=== PATIENT | male | born 1950 | race Caucasian/White ===

== ENCOUNTER 2016-11-01 08:37 | Emergency (ER) | payer OTHER ==
[2016-11-01] MEDS ORDERED: oxyCODONE/Acetamin 5/325 MG* TAB PO ONE (10:51)
[2016-11-01] MEDS ORDERED: Ketorolac INJ* 30 MG/ML 1 ML VIAL IV ONE (10:51)
[2016-11-01 11:28] LABS: Hematocrit 42 % (42-52); Hemoglobin 14.1 g/dl (14.0-18.0); Mean Corpuscular HGB Conc 34 g/dl (31-36); Mean Corpuscular Hemoglobin 32 pg (27-31); Mean Corpuscular Volume 94 fL (80-94); Mean Platelet Volume 9 um3 (7.4-10.4); Red Blood Count 4.46 10^6/ul (4.0-5.4); Red Cell Distribution Width 13 % (10.5-15); White Blood Count 6.2 10^3/ul (3.5-10.8)
[2016-11-01 11:44] LABS: BUN/Creatinine Ratio 17.9 (8-20); C Reactive Protein 1.63 mg/L (< 5.00); Calcium 9.3 mg/dL (8.6-10.3); EGFR African American 102.3 (>60); EGFR Non-African American 79.6 (>60); Globulin 2.8 g/dL (2-4); Potassium 4.3 mmol/L (3.5-5.0); Total Bilirubin 0.5 mg/dL (0.2-1.0); Total Protein 6.8 g/dL (6.4-8.9)
--- NOTE | 2016-11-01 11:51 | RAD ---
INDICATION: Chronic neck pain. Arthritis. No history of trauma. COMPARISON: Cervical spine March 26, 2014 TECHNIQUE: Noncontrast axial source images was performed from the skull base to the thoracic inlet. Coronal and and sagittal reformatted images were generated. FINDINGS: Vertebrae: There is no fracture or acute focal bony lesion. There are arthritic changes as evident on prior plain radiographs with disc space narrowing, endplate sclerosis, and uncinate process spurring from C4 through C7. There is an old avulsion injury from the spinous process of C7, unchanged. Alignment: The craniocervical junction appears normal. The cervical vertebrae are normally aligned. Central Canal: There are no significant CT abnormalities of the central canal or there is bilateral foraminal encroachment related to the multilevel uncinate process spurring. MR imaging is a more sensitive method to evaluate the canal and foramina. Intervertebral disc spaces: Multilevel degenerative narrowing is noted above. Brain: The visualized brain appears unremarkable. Soft tissues: The visualized soft tissue elements of the neck are unremarkable. The prevertebral soft tissues appear normal. The lung apices are clear. IMPRESSION: MODERATE OSTEOARTHRITIS/DEGENERATIVE DISC DISEASE C4-C7. CONSIDER NONEMERGENT MR IMAGING TO EVALUATE THE PATIENT'S CHRONIC NECK PAIN IF THERE ARE RADICULAR SYMPTOMS.
[2016-11-01] MEDS ORDERED: Cyclobenzaprine TAB* 10 MG PO ONE (11:57)
--- NOTE | 2016-11-01 12:35 | RAD ---
INDICATION: Chronic low back pain COMPARISON: CT abdomen pelvis December 20, 2015 TECHNIQUE: Noncontrast axial source images was performed from the thoracolumbar junction to the sacrum. Coronal and and sagittal reformatted images were generated. FINDINGS: Vertebrae: There is no fracture or acute focal bony lesion. There are underlying osteoarthritic changes. There is moderate disc space narrowing, prominent vertebral endplate sclerosis with endplate irregularities, and marginal osteophyte formation at L3-L4, unchanged. There is moderate facet overgrowth at L3-L4. There is mild bulging of the L3-L4, L4-L5 and L5-S1 discs. Alignment: The lumbar vertebrae are normally aligned. Central Canal: There are no significant CT abnormalities of the central canal or foramina. MR imaging is a more sensitive method to evaluate the canal and foramina. Intervertebral disc spaces: The disc spaces are maintained. Soft tissues: The paravertebral soft tissues are normal. Other: None IMPRESSION: DEGENERATIVE DISC DISEASE PREDOMINANTLY ABOUT L3-L4 SIMILAR IN APPEARANCE TO PRIOR IMAGING. NO ACUTE FINDINGS. CONSIDER NONEMERGENT MR IMAGING INDICATED IF THERE ARE RADICULAR SYMPTOMS
[2016-11-01 15:16] VITALS: BP 116/77
--- NOTE | 2016-11-01 17:15 | ED ---
Janak Shannon Benjamin, scribed for Aime Mccullough MD on 11/01/16 at 1034 . Back Pain - HPI Summary HPI Summary: 66yo male c/o waking up today around 4-5am with low back pain and neck pain. Pt has been having minor back and neck pain for awhile, but pt experienced increased neck pain for 3 days and this morning his back pain has gotten worse. Pt doesnt recall any injuries or any lifestyle changes that might explain his sudden increase in pain. Pt had prior imaging in his back at [facility], where pt was dxed with arthritis. Pt also reports burning sensation in his lateral and anterior aspect of his left thigh however no leg pain. Pt states his neck hurts most at rest, and when he move, his low back starts to hurt. Pt reports some numbness in his left leg as well. Denies any pain radiating down his buttock or posterior aspect of his leg. Pt is allergic to morphine. - History of Current Complaint Chief Complaint: EDBackInjuryPain Stated Complaint: BACK PAIN Time Seen by Provider: 11/01/16 10:25 Hx Obtained From: Patient Onset/Duration: Sudden Onset - worsened, Gradual Onset - for 3 days, Still Present, Worse Since - 4am today Onset/Duration: Started Hours Ago - 4am today, Atraumatic, Still Present, Worse Since - 4am today Timing: Constant Back Pain Location: Is Discrete @ - low back pain; neck pain Severity Initially: Moderate Severity Currently: Moderate Pain Intensity: 7 Pain Scale Used: 0-10 Numeric Character: Throbbing - neck and back, Burning - left thigh Aggravating Symptom(s): Movement Alleviating Symptom(s): Nothing Associated Signs And Symptoms: Positive: Numbness - in LLE - Allergies/Home Medications Allergies/Adverse Reactions: Allergies Allergy/AdvReac Type Severity Reaction Status Date / Time Morphine AdvReac See Comment Verified 12/07/15 12:39 PMH/Surg Hx/FS Hx/Imm Hx Endocrine/Hematology History: Denies: Hx Diabetes Cardiovascular History: Denies: Hx Congestive Heart Failure, Hx Hypertension, Hx Pacemaker/ICD GI History: Reports: Hx Gastroesophageal Reflux Disease History: Reports: Other Problems/Disorders - prostate removal Denies: Hx Renal Disease Sensory History: Reports: Hx Contacts or Glasses Denies: Hx Hearing Aid Opthamlomology History: Reports: Hx Contacts or Glasses Neurological History: Denies: Hx Headaches Psychiatric History: Reports: Hx Depression - per H+P Denies: Hx Panic Disorder - Cancer History Cancer Type, Location and Year: PROSTATE - Surgical History Surgery Procedure, Year, and Place: appendix 2010. [id number]. T & A Infectious Disease History: No Infectious Disease History: Denies: Hx Clostridium Difficile, Hx Hepatitis, Hx Human Immunodeficiency Virus (HIV), Hx of Known/Suspected MRSA, Hx Shingles, Hx Tuberculosis, Hx Known/ Suspected VRE, Hx Known/Suspected VRSA, History Other Infectious Disease, Traveled Outside the [place] in Last 30 Days - Family History Known Family History: Positive: Other - high cholesterol - Social History Occupation: Employed Full-time Lives: With Family Alcohol Use: Daily Alcohol Amount: 2-3 beers Substance Use Type: Reports: Marijuana Substance Use Comment - Amount & Last Used: once every other week Smoking Status (MU): Never Smoked Tobacco Review of Systems Constitutional: Negative Negative: Fever Eyes: Negative ENT: Negative Cardiovascular: Negative Negative: Chest Pain Respiratory: Negative Negative: Shortness Of Breath Gastrointestinal: Negative Negative: Abdominal Pain Genitourinary: Negative Positive: no symptoms reported Positive: Arthralgia - neck pain, Myalgia - low back pain Skin: Negative Neurological: Other - burning sensation in LLE Positive: Numbness - LLE Psychological: Normal All Other Systems Reviewed And Are Negative: Yes Physical Exam Triage Information Reviewed: Yes Vital Signs On Initial Exam: Initial Vitals Temp Pulse Resp BP Pulse Ox 97.4 F 53 18 163/90 98 11/01/16 08:38 11/01/16 08:38 11/01/16 08:38 11/01/16 08:38 11/01/16 08:38 Vital Signs Reviewed: Yes Appearance: Positive: Well-Appearing, Well-Nourished, Pain Distress - Mild Pain distress at rest, moderate pain distress with movement. Skin: Positive: Warm, Skin Color Reflects Adequate Perfusion, Dry Head/Face: Positive: Normal Head/Face Inspection Eyes: Positive: EOMI, IESHA ENT: Positive: Normal ENT inspection Neck: Positive: Tenderness @ - Tenderness at C6-7 and T1. Also at L4-5.. Negative: Nontender Respiratory/Lung Sounds: Positive: Clear to Auscultation, Breath Sounds Present Cardiovascular: Positive: RRR, Pulses are Symmetrical in both Upper and Lower Extremities Abdomen Description: Positive: Nontender, Soft Bowel Sounds: Positive: Present Musculoskeletal: Positive: Strength/ROM Intact - Full strength and sensation intact in all 4 extremities., Pain @ - Tenderness at C6-7 and T1. Also at L4-5. Neurological: Positive: Sensory/Motor Intact - Full strength and sensation intact in all 4 extremities., Alert, Oriented to Person Place, Time Psychiatric: Positive: Affect/Mood Appropriate Diagnostics - Vital Signs Vital Signs Temp Pulse Resp BP Pulse Ox 11/01/16 08:50 98.2 F 63 16 129/75 97 11/01/16 08:38 97.4 F 53 18 163/90 98 - Laboratory Lab Results: Lab Results 11/01/16 11/01/16 11/01/16 Range/Units 11:17 11:17 11:17 WBC 6.2 (3.5-10.8) 10^3/ul RBC 4.46 (4.0-5.4) 10^6/ul Hgb 14.1 (14.0-18.0) g/dl Hct 42 (42-52) % MCV 94 (80-94) fL MCH 32 H (27-31) pg MCHC 34 (31-36) g/dl RDW 13 (10.5-15) % Plt Count 260 (150-450) 10^3/ul MPV 9 (7.4-10.4) um3 Neut % (Auto) 65.7 (38-83) % Lymph % (Auto) 22.3 L (25-47) % [place]lette % (Auto) 8.4 (1-9) % Eos % (Auto) 2.4 (0-6) % Baso % (Auto) 1.2 (0-2) % Absolute Neuts (auto) 4.1 (1.5-7.7) 10^3/ul Absolute Lymphs (auto) 1.4 (1.0-4.8) 10^3/ul Absolute Monos (auto) 0.5 (0-0.8) 10^3/ul Absolute Eos (auto) 0.1 (0-0.6) 10^3/ul Absolute Basos (auto) 0.1 (0-0.2) 10^3/ul Absolute Nucleated RBC 0 10^3/ul Nucleated RBC % 0 INR (Anticoag Therapy) 0.91 (0.89-1.11) APTT 33.1 (26.0-36.3) seconds Sodium 135 (133-145) mmol/L Potassium 4.3 (3.5-5.0) mmol/L Chloride 104 (101-111) mmol/L Carbon Dioxide 26 (22-32) mmol/L Anion Gap 5 (2-11) mmol/L BUN 17 (6-24) mg/dL Creatinine 0.95 (0.67-1.17) mg/dL Est GFR ( Amer) 102.3 (>60) Est GFR (Non-Af Amer) 79.6 (>60) BUN/Creatinine Ratio 17.9 (8-20) Glucose 92 (70-100) mg/dL Calcium 9.3 (8.6-10.3) mg/dL Total Bilirubin 0.50 (0.2-1.0) mg/dL AST 16 (13-39) U/L ALT 18 (7-52) U/L Alkaline Phosphatase 56 (34-104) U/L C-Reactive Protein 1.63 (< 5.00) mg/L Total Protein 6.8 (6.4-8.9) g/dL Albumin 4.0 (3.2-5.2) g/dL Globulin 2.8 (2-4) g/dL Albumin/Globulin Ratio 1.4 (1-3) Result Diagrams: 11/01/16 11:17 09 11:17 Lab Statement: Any lab studies that have been ordered have been reviewed, and results considered in the medical decision making process. - CT CT C-spine WO CT Interpretation: Positive (See Comments) - IMPRESSION: MODERATE OSTEOARTHRITIS/DEGENERATIVE DISC DISEASE C4-C7. CONSIDER NONEMERGENT MR IMAGING TO EVALUATE THE PATIENT'S CHRONIC NECK PAIN IF THERE ARE RADICULAR SYMPTOMS. CT Interpretation Completed By: Radiologist - ED physician has reviewed this radiology report and agrees. CT L-spine WO CT Interpretation: No Acute Changes - IMPRESSION: DEGENERATIVE DISC DISEASE PREDOMINANTLY ABOUT L3-L4 SIMILAR IN APPEARANCE TO PRIOR IMAGING. NO ACUTE FINDINGS. CONSIDER NONEMERGENT MR IMAGING INDICATED IF THERE ARE RADICULAR SYMPTOMS CT Interpretation Completed By: Radiologist Back Pain Course/Dx - Course Course Of Treatment: Reviewed pts medication and allergy lists. High blood pressure noted. PAIN IMPROVED IN ED WITH TORADOL, PERCOCET AND FLEXERIL. RESULTS DISUSSED WITH PATIENT. NO NEUROLOGIC DEFICIT. RX PERCOCET/FLEXERIL, TAKE IBUPROFEN OTC, F/U PMD, RETURN IF WORSE. NO CRITICAL CARE TIME. - Diagnoses Provider Diagnoses: Neck pain, Cervical radiculopathy, Low back pain Discharge - Discharge Plan Condition: Stable Disposition: HOME Prescriptions: Cyclobenzaprine TAB* [Flexeril 10 MG TAB*] 10 mg PO TID PRN #15 tab MDD 3 PRN Reason: Pain oxyCODONE/Acetamin 5/325 MG* [Percocet 5/325 TAB*] 1 tab PO Q4H PRN #30 tab MDD 6 PRN Reason: Pain Patient Education Materials: Acute Low Back Pain (ED), Cervical Radiculopathy ( ED), Neck Pain (ED) Referrals: Rachel Jc MD [Primary Care Provider] - Additional Instructions: FOLLOW UP WITH YOUR DOCTOR. RETURN TO THE EMERGENCY DEPARTMENT FOR ANY WORSENING OF YOUR CONDITION; WEAKNESS , NUMBNESS, DIFFICULTY CONTROLLING BOWEL OR BLADDER OR QUESTIONS OR CONCERNS. The documentation as recorded by the Janak gastelum Benjamin accurately reflects the service I personally performed and the decisions made by me, Aime Mccullough MD.
== END 2016-11-01 15:22 | disposition home or self-care (01) ==
LOC: ED 08:37
DX: M54.5 Low back pain (principal)
CPT/HCPCS: 36415; 72125; 72131; 80053; 85025; 85610; 85730; 86140; 99283; A9270-GY; J1885

== ENCOUNTER 2017-06-23 21:03 | Emergency (ER) | payer OTHER ==
[2017-06-23 21:10] VITALS: BP 136/80
[2017-06-23] MEDS ORDERED: Ketorolac INJ* 30 MG/ML 1 ML VIAL IM ONE (22:00)
--- NOTE | 2017-06-23 22:06 | ED ---
Lower Extremity - HPI Summary HPI Summary: Complains of progressive left hip pain 2 weeks. Patient increased significantly this past , patient went to see PCP, was diagnosed with bursitis and told to take Tylenol and ibuprofen. Tylenol and ibuprofen were controlling pain until today when there was another significant increase in pain. Pain is worse after sitting, worse with full extension of left hip. Patient denies trauma, history of hip pain, radiation of pain, history of gout, fever, N/V, loss of sensation or function distally in left lower extremity, urinary symptoms, abdominal pain, testicular or penile pain, incontinence, urinary retention, inc in chronic back pain. Medical history is arthritis of lower back, HTN, HDL, prostate cancer. - History of Current Complaint Chief Complaint: EDExtremityLower Stated Complaint: LT HIP PAIN Time Seen by Provider: 06/23/17 21:48 Hx Obtained From: Patient Onset of Pain: Days Onset/Duration: Weeks Severity Initially: Mild Severity Currently: Moderate Pain Intensity: 6 Pain Scale Used: 0-10 Numeric Timing: Intermittent Location: Is Discrete @ Character Of Pain: Sharp, Aching Associated Signs And Symptoms: Positive: Negative Aggravating Factor(s): Movement Alleviating Factor(s): Rest Able to Bear Weight: Yes - Risk Factors Gout Risk Factors: Age Over 40, Male, Hypertension, Hyperlipidemia - Allergies/Home Medications Allergies/Adverse Reactions: Allergies Allergy/AdvReac Type Severity Reaction Status Date / Time morphine Allergy See Comment Verified 06/23/17 21:10 Home Medications: Home Medications Aspirin 81 mg CHEW TAB* 81 mg PO DAILY 06/23/17 [History Confirmed 06/23/17] FLUoxetine* 30 mg PO DAILY 06/23/17 [History Confirmed 06/23/17] Lisinopril TAB* 10 mg PO DAILY 06/23/17 [History Confirmed 06/23/17] PMH/Surg Hx/FS Hx/Imm Hx Endocrine/Hematology History: Denies: Hx Diabetes Cardiovascular History: Denies: Hx Congestive Heart Failure, Hx Hypertension, Hx Pacemaker/ICD GI History: Reports: Hx Gastroesophageal Reflux Disease History: Reports: Other Problems/Disorders - prostate removal Denies: Hx Renal Disease Sensory History: Reports: Hx Contacts or Glasses Denies: Hx Hearing Aid Opthamlomology History: Reports: Hx Contacts or Glasses Neurological History: Denies: Hx Headaches Psychiatric History: Reports: Hx Depression - per H+P Denies: Hx Panic Disorder - Cancer History Cancer Type, Location and Year: PROSTATE - Surgical History Surgery Procedure, Year, and Place: appendix 2010. [id number]. T & A Infectious Disease History: No Infectious Disease History: Denies: Hx Clostridium Difficile, Hx Hepatitis, Hx Human Immunodeficiency Virus (HIV), Hx of Known/Suspected MRSA, Hx Shingles, Hx Tuberculosis, Hx Known/ Suspected VRE, Hx Known/Suspected VRSA, History Other Infectious Disease, Traveled Outside the [place] in Last 30 Days - Family History Known Family History: Positive: Other - high cholesterol - Social History Alcohol Use: Daily Alcohol Amount: 2-3 beers Substance Use Type: Reports: Marijuana Substance Use Comment - Amount & Last Used: once every other week Smoking Status (MU): Never Smoked Tobacco Review of Systems Constitutional: Negative Eyes: Negative ENT: Negative Cardiovascular: Negative Respiratory: Negative Gastrointestinal: Negative Genitourinary: Negative Positive: Arthralgia Skin: Negative Neurological: Negative Psychological: Normal All Other Systems Reviewed And Are Negative: Yes Physical Exam - Summary Physical Exam Summary: Full range of motion of left hip with flexion and extension. Pain at extremes of extension. Mild tenderness to palpation of left hip. No erythema, ecchymosis, deformity, swelling, extra warmth noted to left hip joint or gluteus. Genital exam unremarkable. No tenderness to palpation of left knee or left side abdomen or back. Triage Information Reviewed: Yes Vital Signs On Initial Exam: Initial Vitals Temp Pulse Resp BP Pulse Ox 97.6 F 79 18 136/80 96 06/23/17 21:06 06/23/17 21:06 06/23/17 21:06 06/23/17 21:06 06/23/17 21:06 Vital Signs Reviewed: Yes Appearance: Positive: Well-Appearing Skin: Positive: Warm Head/Face: Positive: Normal Head/Face Inspection Eyes: Positive: Normal Neck: Positive: Supple Respiratory/Lung Sounds: Positive: Clear to Auscultation Cardiovascular: Positive: Normal Abdomen Description: Positive: Nontender Male Genital Exam: Positive: Normal Genitalia Musculoskeletal: Positive: Strength/ROM Intact, Pain @ Neurological: Positive: Normal Psychiatric: Positive: Normal AVPU Assessment: Alert - Casey Coma Scale Best Eye Response: 4 - Spontaneous Best Motor Response: 6 - Obeys Commands Best Verbal Response: 5 - Oriented Coma Scale Total: 15 Diagnostics - Vital Signs Vital Signs Temp Pulse Resp BP Pulse Ox 06/23/17 21:06 97.6 F 79 18 136/80 96 - Laboratory Result Diagrams: 06/23/17 22:34 06/23/17 22:34 Lab Statement: Any lab studies that have been ordered have been reviewed, and results considered in the medical decision making process. Re-Evaluation - Re-Evaluation 1n Re-Evaluation Time: 23:28 Change: Improved Comment: Pain improved from 12/04-05/04 with Toradol Lower Extremity Course/Dx - Course Course Of Treatment: Vital signs within normal limits. Imaging negative. Labs and physical exam did not indicate infectious process. Follow-up with orthopedics - Diagnoses Provider Diagnoses: Hip pain, left Discharge - Sign-Out/Discharge Documenting (check all that apply): Discharge/Admit/Transfer - Discharge Plan Condition: Stable Disposition: HOME Patient Education Materials: Hip Pain (ED) Referrals: Rachel Jc MD [Primary Care Provider] - Timur Amaya MD [Medical Doctor] - Additional Instructions: Follow-up with orthopedics Dr. Amaya. Return to the ED for any new or worsening symptoms - Billing Disposition and Condition Condition: STABLE Disposition: HOME
[2017-06-23 22:45] LABS: ABS Basophils 0.1 10^3/ul (0-0.2); ABS Eosinophils 0.2 10^3/ul (0-0.6); ABS Lymphocytes 2.8 10^3/ul (1.0-4.8); ABS Monocytes 0.7 10^3/ul (0-0.8); ABS Neutrophils 6.3 10^3/ul (1.5-7.7); ABS Nucleated RBC 0 10^3/ul; Eosinophil % 2.3 % (0-6); Hematocrit 41 % (42-52); Hemoglobin 14.2 g/dl (14.0-18.0); Lymphocyte % 27.8 % (25-47); Mean Corpuscular HGB Conc 35 g/dl (31-36); Mean Corpuscular Hemoglobin 33 pg (27-31); Mean Corpuscular Volume 95 fL (80-94); Nucleated Red Blood Cells % 0; Platelet Count 296 10^3/ul (150-450); Red Blood Count 4.35 10^6/ul (4.0-5.4); Red Cell Distribution Width 13 % (10.5-15); White Blood Count 10.2 10^3/ul (3.5-10.8)
[2017-06-23 23:04] LABS: EGFR Non-African American 59.1 (>60); Uric Acid 4.9 mg/dL (4.4-7.6)
[2017-06-24] MEDS ORDERED: oxyCODONE/Acetamin 5/325 MG* TAB PO ONE (00:13)
--- NOTE | 2017-06-24 07:31 | RAD ---
INDICATION: Left hip pain. COMPARISON: There are no prior studies available for comparison. TECHNIQUE: An AP view of the pelvis and frontal and lateral views of the left hip were obtained. FINDINGS: The bones are normal alignment. No significant focal osseous abnormality or fracture is seen. There is mild bilateral osteoarthritic change in the hips. There are multiple surgical clips which project over the inferior portion of the pelvis likely from a prior prostatectomy. IMPRESSION: 1. MILD BILATERAL OSTEOARTHRITIC CHANGE IN THE HIPS. 2. POST SURGICAL CHANGES.
== END 2017-06-24 00:40 | disposition home or self-care (01) ==
LOC: ED 21:03
DX: M25.552 Pain in left hip (principal); Z87.19 Personal history of other diseases of the digestive system; Z86.79 Personal history of other diseases of the circulatory system
CPT/HCPCS: 36415; 80053; 83605; 84550; 85025; 85652; 86140; 96372; 99283; A9270-GY; J1885

== ENCOUNTER 2017-08-13 07:58 | Observation (INO) | payer MEDICARE, OTHER ==
[~2017-08-13 07:58] MED LIST: Bacitracin IV* 50,000 UNITS INJ ONE; Buffered Lidocaine 0.9% SYRIN* 5 ML/SYR SYRINGE INTRADERM ONE; Buffered Lidocaine 0.9% SYRIN* 5 ML/SYR SYRINGE ONE; Dexamethasone IV* 4 MG/ML 1 ML (4 MG) IV SLOW PU ONE; Dexamethasone IV* 4 MG/ML 1 ML (4 MG) ONE; Lidocaine 1% MPF wEPI 200,000* 30 ML SDV ONE; Thrombin 5,000 UNITS* 1 APPLIC KIT - topical use - TOPICAL ONE; ceFAZolin 2 GM PREMIX (*) 2 GM/50 ML BAG IVPB ONE
[2017-08-13] MEDS ORDERED: Midazolam* 1 MG/ML 5 ML VIAL (5 MG) ONE (10:22)
[2017-08-13] MEDS ORDERED: fentaNYL* 50 MCG/ML 5 ML VIAL (250 MCG VIAL) ONE (10:22)
[2017-08-13] MEDS ORDERED: Lidocaine 2% PF * 5 ML VIAL ONE ×2 (10:24→11:19)
[2017-08-13] MEDS ORDERED: Metoprolol Tartrate IV* 1 MG/ML 5 ML VIAL ONE (10:25)
[2017-08-13] MEDS ORDERED: Propofol* 10 MG/ML 20 ML BTL IV PUSH ONE (11:19)
[2017-08-13] MEDS ORDERED: Naloxone* 0.4 MG/ML 1 ML VIAL IV PRN (12:10)
[2017-08-13] MEDS ORDERED: HYDROmorphone INJ* 1 MG/ML CARPUJECT SYRINGE IV PRN (12:10)
[2017-08-13] MEDS ORDERED: DiMENhydriNATE IV* 50 MG/ML VIAL IV PUSH PRN (12:10)
[2017-08-13] MEDS ORDERED: oxyCODONE/Acetamin 5/325 MG* TAB PO PRN (12:10)
[2017-08-13] MEDS ORDERED: fentaNYL* 50 MCG/ML 2 ML VIAL (100 MCG VIAL) IV PRN (12:10)
[2017-08-13] MEDS ORDERED: Ondansetron INJ* 2 MG/ML VIAL IV PRN (12:10)
[2017-08-13] MEDS ORDERED: Magnesium Hydroxide LIQ* 30 ML UDC PO PRN (13:09)
--- NOTE | 2017-08-13 14:42 | RAD ---
INDICATION: Lumbar discectomy L4-L5 level, left. COMPARISON: Comparison is made with a prior CT myelogram from July 19, 2017. TECHNIQUE: A single portable cross table lateral view of the lumbar spine was obtained in the operating room. FINDINGS: There are several surgical instruments which project posteriorly at the L4-L5 level. IMPRESSION: INTRAOPERATIVE CONTROL FILMS.
[2017-08-13] MEDS: Ibuprofen TAB* 400 MG PO PRN ×2 (17:41→23:39)
[2017-08-13] MEDS: Acetaminophen TAB* 325 MG PO PRN ×2 (17:42→22:36)
[2017-08-13] MEDS: Benzocaine/Menthol LOZ* 1 LOZENGE PO PRN ×2 (20:21→22:36)
[2017-08-14] MEDS: Benzocaine/Menthol LOZ* 1 LOZENGE PO PRN ×4 (00:40→07:50)
[2017-08-14] MEDS: Acetaminophen TAB* 325 MG PO PRN ×2 (02:35→07:04)
[2017-08-14] MEDS: Ibuprofen TAB* 400 MG PO PRN (05:42)
--- NOTE | 2017-08-14 07:42 | PN ---
Progress Note - Progress Note Date of Service: 08/14/17 SOAP: Subjective: []POD # 1 Doing well Has ambulated,voided C/O incisional pain Objective: []Neuro intact Assessment: []Satis post op course Plan: []D/C today D/C Instructions given
[2017-08-14 07:47] VITALS: BP 109/65
[2017-08-14] MEDS ORDERED: OMEPRAZOLE 10 MG PO SCH (09:00)
[2017-08-14] MEDS ORDERED: Lisinopril TAB* 10 MG PO SCH (09:00)
[2017-08-14] MEDS ORDERED: Atorvastatin* 80 MG TAB PO SCH (09:00)
[2017-08-14] MEDS ORDERED: BuPROPion XL* 300 MG TAB.XL PO SCH (09:00)
[2017-08-14] MEDS ORDERED: FLUoxetine CAP* 20 MG PO SCH (09:00)
--- NOTE | 2017-08-19 12:14 | DS ---
DATE OF ADMISSION: 08/13/2017. DATE OF DISCHARGE: 08/14/2017. ATTENDING PHYSICIAN: Dr. Juan Hodge * (dictated by ALEM Stephens). DISCHARGE DIAGNOSES: 1. Herniated nucleus pulposus L4-5 left. 2. Hypertension. SPECIAL PROCEDURE: Lumbar diskectomy L4-5 on the left. HOSPITAL COURSE: This 67-year-old male was seen in the office with left-sided lumbar radiculopathy beginning after a fall five to six weeks prior. He failed to improve with conservative treatment. MRI showed a probable herniated disk at L4-5 on the left; however, this was not clear. He underwent a lumbar CT myelogram which did show the disk herniation. He then elected for surgical intervention. On the day of admission, he was taken to surgery where under general anesthesia a lumbar diskectomy at L4-5 on the left operation was carried out. Postoperatively he was feeling well and the preoperative left lower extremity symptoms were improved. He was ambulating independently and was eating, drinking, and voiding without difficulty. Pain was controlled with Tylenol and Motrin. On the first postoperative day, the patient was discharged home to the care of his . No discharge medications were prescribed. DISCHARGE INSTRUCTIONS: Wound care and activity level were discussed with the patient and information on this was provided. FOLLOW-UP: He will be seen in office in approximately ten days for follow-up and staple removal. ALEM STEPHENS [id number]/[facility] #: [id number] [facility]EE HOSPITALCourtney
--- NOTE | 2017-08-22 01:59 | OP ---
DATE OF OPERATION: 08/13/17 - ROOM #339 DATE OF : 52 SURGEON: Juan Hodge MD WINE FERMENTER: ALEM England ANESTHESIA: General. PRE-OP DIAGNOSIS: Herniated nucleus pulposus, L4-5, on the left. POST-OP DIAGNOSIS: Herniated nucleus pulposus, L4-5, on the left. OPERATIVE PROCEDURE: Lumbar discectomy, L4-5, on the left with microdissection. DESCRIPTION OF PROCEDURE: After satisfactory general anesthesia was obtained, the patient was placed on the operating table in the prone position with the chest supported on the Catracho frame and the back slightly flexed. The lumbar region was then clipped, prepped, and draped in a sterile manner for lumbar laminectomy and a skin incision outlined from L4 to L5. This incision was infiltrated with 1% Xylocaine with epinephrine, after which it was turned sharply down to the lumbar fascia. The fascia was divided along the spinous processes of L4 and L5 and the paraspinal musculature was stripped away from these posterior elements using the periosteal elevator and monopolar cautery. An intraoperative x-ray was obtained verifying the proper interspace localization after which a partial hemilaminectomy was carried out by removing the inferior aspect of the L4 lamina and medial aspect of facet complex utilizing a combination of the Midas Arnold drill and Kerrison rongeurs. This was carried superiorly until the attachment of ligamentum flavum was taken down. Ligamentum flavum was then removed with the Kerrison as well. Additional superior exposure was obtained as the preoperative imaging had suggested a superiorly migrated foraminal disk herniation at this level. Utilizing micro- dissection, epidural venous structures were coagulated and divided. The L4 nerve root was identified as it came out laterally. Projecting beneath the L4 nerve root was a foraminal disk herniation. An opening was made in the posterior longitudinal ligament and multiple fragments of disk removed from the foraminal region laterally. The disk space itself was entered and cleared of any loose disk material as well. It was felt that a satisfactory decompression had been achieved. After assuring adequate hemostasis, the wound was thoroughly irrigated, after which a piece of Gelfoam was placed over the laminectomy defect. The fascia was then reapproximated with 0 Vicryl suture, the subcutaneous tissues closed with 3-0 Vicryl suture, and the skin closed with skin clips. The estimated blood loss was less than 50 cc and the final sponge, padding, and needle counts were correct. The patient was taken to the recovery room, extubated, and in stable condition. [id number]/[facility] #: [id number] MTDD
== END 2017-08-14 09:35 | disposition home or self-care (01) ==
LOC: OR 07:58 → SSU 15:31
PROVIDERS: ADMIT Neurological Surgery; ATTEND Neurological Surgery
PROC: 0SB20ZZ Excision of Lumbar Vertebral Disc, Open Approach (ICD-10-PCS; principal; 2017-08-14)
PROC: 01NB0ZZ Release Lumbar Nerve, Open Approach (ICD-10-PCS; 2017-08-14)
DX: M51.16 Intervertebral disc disorders with radiculopathy, lumbar region (principal); Z88.5 Allergy status to narcotic agent; Z79.899 Other long term (current) drug therapy
CPT/HCPCS: 72100; 88304; A9270-GY; G0378; J0690; J1100; J2001; J2250; J2704; J3010; J3490

== ENCOUNTER 2017-09-21 09:14 | Emergency (ER) | payer OTHER ==
--- OUTSIDE RECORDS SUMMARY | 2017-09-21 09:20 | XMS REPORT ---
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 Active Family History Date Family Member(s) Problem(s) Comments General Stroke General Cancer Siblings 4 Social History Type Date Description Comments Marital Status Lives With Occupation Currently Working Occupation Professor ETOH Use Currently consumes alcohol ETOH Use Consumes 4 beers per day Smoking Patient has never smoked Daily Caffeine Consumes on average 4 cups of regular coffee per day Exercise Type/Frequency Does not exercise Allergies, Adverse Reactions, Alerts Date Description Reaction Status Severity Comments 01/28/2017 Morphine Liposomal active Medications Medication Date Status Form Strength Qnty SIG Indications Ordering Provider Tramadol HCL 08/16/ Active Tablets 50mg 20tabs 1 by Juan Hodge, every 6 M.D. hours as needed pain Wellbutrin SR 00/ Active 300mg Unknown 0000 daily Crestor 0000/ Active 40 mg Unknown 0000 daily Prozac 00/ Active 10mg daily Unknown 0000 Fiber / Active 1.5 Unknown 0000 grams daily Vitamin B12 / Active 2500mcg Unknown 0000 daily Omeprazole / Active 10 mg Unknown 0000 daily Aspirin Adult Low / Active Tablets DR 81mg take one Unknown Strength 0000 tablet by mouth daily. Lisinopril / Active Tablets 10mg 1 by Unknown 0000 mouth every day Levitra / Active Tablets 20mg every Unknown 0000 day as needed Methylfolate / Active Capsules 400mcg Unknown 0000 Cyclobenzaprine / Active Tablets 10mg take 1 Unknown HCL 0000 tablet by mouth three times a day if needed for muscle spasm Probiotic / Hx Capsules 1 by Unknown 0000 mouth every day Fish Oil / Hx Unknown 0000 Metaxalone / Hx Tablets 800mg take 1 Unknown 0000 - tablet 3 07/10/ times a 2017 day as needed Medications Administered in Office Medication Date Status Form Strength Qnty SIG Indications Ordering Provider No Injection Administered Injection Murali F 016 MD Camryn Depomedrol Administered Injection Toño 80MG 010 Giovanny Avendaño Vital Signs Date Vital Result Comment 08/26/2017 Height 72 inches 6'0" Weight 250.00 lb BP Systolic Sitting 130 mmHg BP Diastolic Sitting 70 mmHg Body Temperature 97.9 F Pain Level 0 BMI (Body Mass Index) 33.9 kg/m2 07/24/2017 Height 72 inches 6'0" Weight 250.00 lb BP Systolic Sitting 118 mmHg BP Diastolic Sitting 78 mmHg Pain Level 0 BMI (Body Mass Index) 33.9 kg/m2 07/10/2017 Height 72 inches 6'0" Weight 250.00 lb BP Systolic Sitting 140 mmHg BP Diastolic Sitting 80 mmHg Pain Level 2 BMI (Body Mass Index) 33.9 kg/m2 02/12/2017 Heart Rate 74 /min Respiratory Rate 16 /min Body Temperature 98.1 F 02/04/2017 Heart Rate 68 /min BP Systolic 132 mmHg BP Diastolic 90 mmHg Respiratory Rate 16 /min Body Temperature 98.2 F 01/31/2017 Heart Rate 72 /min BP Systolic 146 mmHg BP Diastolic 90 mmHg Respiratory Rate 16 /min Body Temperature 97.4 F 12/19/2015 Height 74.25 inches 6'2.25" Weight 261.00 lb Heart Rate 60 /min Respiratory Rate 16 /min Pain Level 2 BMI (Body Mass Index) 33.3 kg/m2 12/05/2015 Height 74.25 inches 6'2.25" Weight 261.00 lb Heart Rate 88 /min BP Systolic 130 mmHg BP Diastolic 90 mmHg Pain Level 3 BMI (Body Mass Index) 33.3 kg/m2 Results Test Date Test Result H/L Range Note CBC No Diff 08/06/2017 White Blood Count 6.8 10^3/uL 3.5-10.8 Red Blood Count 4.46 10^6/uL 4.00-5.40 Hemoglobin 14.5 g/dL 14.0-18.0 Hematocrit 42 % 42-52 Mean Corpuscular Volume 94 fL 80-94 Mean Corpuscular Hemoglobin 33 pg High 27-31 Mean Corpuscular HGB Conc 35 g/dL 31-36 Red Cell Distribution Width 13 % 10.5-15 Platelet Count 282 10^3/uL 150-450 Mean Platelet Volume 8.4 um3 7.4-10.4 Basic Metabolic Panel 08/06/2017 Sodium 138 mmol/L Low 139-145 Potassium 4.2 mmol/L 3.5-5.0 Chloride 105 mmol/L 101-111 Co2 Carbon Dioxide 26 mmol/L 22-32 Anion Gap 7 mmol/L 2-11 Glucose 94 mg/dL 70-100 Blood Urea Nitrogen 12 mg/dL 6-24 Creatinine 0.99 mg/dL 0.67-1.17 BUN/Creatinine Ratio 12.1 8-20 Calcium 9.6 mg/dL 8.6-10.3 Egfr Non- 75.6 >60 Egfr 97.3 >60 1 Laboratory test finding 02/04/2017 Surgical Pathology SEE RESULT BELOW 2 1 Because ethnic data is not always readily available, this report includes an eGFR for both -Americans and non- Americans. The National Kidney Disease Education Program (NKDEP) does not endorse the use of the MDRD equation for patients that are not between the ages of 18 and 70, are , have extremes of body size, muscle mass, or nutritional status, or are non- or non-. According to the National Kidney Foundation, irrespective of diagnosis, the stage of the disease is based on the level of kidney function: Stage Description GFR(mL/min/1.73 m(2)) 1 Kidney damage with normal or decreased GFR 90 2 Kidney damage with mild decrease in GFR 60-89 3 Moderate decrease in GFR 30-59 4 Severe decrease in GFR 15-29 5 Kidney failure <15 (or dialysis) 2 SEE RESULT BELOW Name: ALISON DILL : [address]: Manish Pena MD Acct: [id number] Unit: [id number] AGE: 66 Location: [facility] Re02/04/17 SEX: M Status: REG REF SPEC: [id number] DARI: 02/04/17-[address] [facility] [address]: Manish Pena MD REQ: [id number] RECD: 02/04/17 STATUS: SOUT _ ORDERED: LEVEL 3 COMMENTS: [id number] FINAL DIAGNOSIS Soft tissue, right arm, excision: -- Angiolipoma. CLINICAL HISTORY No history given PRE-OPERATIVE DIAGNOSIS GROSS DESCRIPTION The specimen is received in formalin labeled, Right Arm Mass, and consists of a 2.1 by up to 1.7 x 1.1 cm yellow ovoid well encapsulated adipose tissue fragment. The cut surface is glistening pale yellow and homogeneous. The specimen is inked, serially sectioned and product representative sections are submitted in one cassette. Signed (signature on file) Dionicio Potts MD 1055 END OF REPORT * ML=Testing performed at Main Lab DEPARTMENT OF PATHOLOGY, [address] [place] [address] Dionicio Potts M.D. Director [facility] # [id number] Procedures Date CPT Code Description Status 08/13/2017 42052 Laminotomy W/Decomp NRV RT,One Interspace,Lumbar Completed 08/13/2017 44680 Laminotomy W/Decomp NRV RT,One Interspace,Lumbar Completed 02/04/2017 99362 Excision Tumor Soft Tissue Forearm/Wrist Subcutaneous < Completed 3 CM 02/04/2017 34698 Excision Tumor Soft Tissue Forearm/Wrist Subcutaneous < Completed 3 CM 12/19/201534075 Injection Single Tendon Origin/Insertion Completed 01/02/2010 Inject/Drain Joint/Bursa Major W/O US Completed 04/14/2007 30101 EKG, Interpretation Only Completed Encounters Type Date Location Provider CPT E/M Dx Office Visit 07/24/2017 [facility] Juan Hodge, 30132 M51.26 1:00p Of Sasha Baltazar Office Visit 07/10/2017 [facility] Juan Hodge, 88986 M48.062 1:30p Of Sasha Baltazar M54.16 Office Visit 01/31/2017 10:45a [facility] [place], [address] D17.20 [facility] Office Visit 12/19/2015 1:45p [facility] 57024 M77.02 Malcolm Cowan MD Office Visit 12/05/2015 9:00a [facility] 10111 M77.02 Malcolm Cowan MD Office Visit 12/22/2014 11:24a [facility], Sandra Pena, 85148 K57.32 Hospitalists Giovanny E78.5 Office Visit 12/21/2014 1:07p [facility], ALEM Maher 81000 K57.20 Hospitalists Office Visit 12/21/2014 11:23a [facility], Sandra Andersonima, 31940 K57.32 Hospitalists Giovanny E78.5 Office Visit 12/20/2014 1:06p [facility], ALEM Maher 86166 K57.20 Hospitalists Office Visit 12/20/2014 11:21a [facility], Romario Kai, 07688 K57.32 Hospitalists Ritchie E78.5 Office Visit 03/06/2010 1:30p [facility] Avenda[facility] M.D. 60840 726.2 C.[facility].A[facility] Office Visit 01/02/2010 1:15p [facility] M.D. 62363 726.2 C.M.A. Plan of Care Future Appointment(s):09/23/2017 9:00 am - Juan Hodge M.D. at [facility]08/26/2017 - Juan Hodge M.D.Z48.89 Encounter for other specified surgical aftercareFollow up:4 weeks
[2017-09-21 09:30] VITALS: BP 125/91
--- NOTE | 2017-09-21 09:57 | UC ---
Throat Pain/Nasal Robert HPI - HPI Summary HPI Summary: 67 yo male presents with throat/lung complaint. He tells me that around 0815 this morning he took his morning pills, all at the same time, with a cup of water and feels that one of them went into his windpipe and into his lungs. He is eating and drinking fine. No trouble breathing. Says that when he coughs he feels as though it may "come up". Adamant that he does not feel that anything is "stuck" in his throat. - History of Current Complaint Chief Complaint: UCForeignBody Stated Complaint: THROAT COMPLAINT Time Seen by Provider: 09/21/17 09:51 Hx Obtained From: Patient Onset/Duration: Sudden Onset Pain Intensity: 0 - Allergies/Home Medications Allergies/Adverse Reactions: Allergies Allergy/AdvReac Type Severity Reaction Status Date / Time morphine AdvReac Intermediate See Comment Verified 09/21/17 09:30 PMH/Surg Hx/FS Hx/Imm Hx Endocrine History: Dyslipidemia Cardiovascular History: Hypertension GI/ History: Gastroesophageal Reflux Psychological History: Anxiety, Depression - Surgical History Surgical History: Yes Surgery Procedure, Year, and Place: appendix 2010. prostatectomy 2008. T & A as a child. Back surgery 2018 - Family History Known Family History: Positive: Hypertension, Other - high cholesterol - Social History Occupation: Retired Lives: With Family Alcohol Use: Daily Alcohol Amount: 2 beers daily Substance Use Type: Marijuana Substance Use Comment - Amount & Last Used: occasional Smoking Status (MU): Never Smoked Tobacco - Immunization History Most Recent Influenza Vaccination: 11/2014 Most Recent Tetanus Shot: within 10 yrs Most Recent Pneumonia Vaccination: never Review of Systems Constitutional: Negative Skin: Negative Eyes: Negative ENT: Negative Respiratory: Cough Cardiovascular: Negative Gastrointestinal: Negative Neurovascular: Negative Neurological: Negative Psychological: Anxious All Other Systems Reviewed And Are Negative: Yes Physical Exam - Summary Physical Exam Summary: GENERAL: NAD. Very anxious SKIN: No rashes, sores, lesions, or open wounds. HEENT: Head: AT/NC Throat: Posterior oropharynx without exudates, erythema, or tonsillar enlargement. Uvula midline. NECK: Supple. Nontender. No lymphadenopathy. CHEST: CTAB. No r/r/w. No accessory muscle use. Breathing comfortably and in no distress. CV: RRR. Without m/r/g. Pulses intact. Brisk cap refill. NEURO: Alert. CN II-XII grossly intact. PSYCH: Age appropriate behavior. Triage Information Reviewed: Yes Vital Signs: Initial Vital Signs Temp 96.9 F 09/21/17 09:22 Pulse 64 09/21/17 09:22 Resp 16 09/21/17 09:22 BP 125/91 09/21/17 09:22 Pulse Ox 96 09/21/17 09:22 Vital Signs Reviewed: Yes Throat Pain/Nasal Course/Dx - Course Course Of Treatment: Nurse called poison control and discussed each of pt's medications. They advised no further treatment as long as the pt continued breathing/eating/drinking without difficulties. CXR: IMPRESSION: Lungs clear. No radiopaque foreign body. Reassured pt and advised that if he developed any new or worsening symptoms that he should be seen in the ED. Also advised to separate his pills and to not take all nine at once. - Differential Dx/Diagnosis Provider Diagnoses: Pill aspiration Discharge - Sign-Out/Discharge Documenting (check all that apply): Patient Departure - Discharge Plan Condition: Stable Disposition: HOME Patient Education Materials: Aspiration Pneumonia (DC), Esophageal Foreign Body (ED) Referrals: Rachel Jc MD [Primary Care Provider] - Additional Instructions: If you develop a fever, shortness of breath, chest pain, new or worsening symptoms - please call your PCP or go to the ED. - Billing Disposition and Condition Condition: STABLE Disposition: Home
--- NOTE | 2017-09-21 10:42 | RAD ---
INDICATION: Aspiration COMPARISON: None TECHNIQUE: PA and lateral dual-energy views were obtained. FINDINGS: Bones/Soft Tissues: There are no acute bony findings. Cardiomediastinal: The cardiomediastinal silhouette is normal. Lungs: There are no infiltrates. Pleura: There are no pleural effusions. Other: None IMPRESSION: Lungs clear. No radiopaque foreign body.
== END 2017-09-21 10:52 | disposition home or self-care (01) ==
LOC: UCEAST 09:14
DX: T17.290A Other foreign object in pharynx causing asphyxiation, initial encounter (principal); X58.XXXA Exposure to other specified factors, initial encounter; Y93.9 Activity, unspecified; Y99.9 Unspecified external cause status
CPT/HCPCS: 71046; 99212; G0463

== ENCOUNTER 2018-03-18 19:21 | Emergency (ER) | payer OTHER ==
[2018-03-18 19:37] VITALS: BP 163/97
--- NOTE | 2018-03-18 20:03 | UC ---
Abdominal Pain Male HPI - HPI Summary HPI Summary: WOKE UP IN THE MIDDLE OF THE NIGHT LAST NIGHT WITH SHARP LOWER/LEFT SIDED ABDOMINAL PAIN. PAIN HAS WORSENED THROUGHOUT THE DAY. HE HAS HAD SEVERAL EPISODES OF SMALL PENCIL-SHAPED STOOLS THROUGHOUT THE DAY. DENIES FEVER. NO NAUSEA/VOMITING. STATES SHE HAS HAD DIVERTICULITIS 3 TIMES IN THE PAST BUT IS UNABLE TO SAY THAT THIS FEELS ENTIRELY SIMILAR. PATIENT UNABLE TO GET COMFORTABLE. POSSIBLE URINARY FREQUENCY BUT NO DYSURIA. HAS A HISTORY OF PROSTATE CANCER STATUS POST PROSTATECTOMY. - History of Current Complaint Chief Complaint: UCAbdominalPain Stated Complaint: ABDOMINAL PAIN Time Seen by Provider: 03/18/18 19:30 Hx Obtained From: Patient Onset/Duration: Sudden Onset, Lasting Hours, Still Present Timing: Constant Severity Initially: Mild Severity Currently: Moderate Pain Intensity: 7 Pain Scale Used: 0-10 Numeric Location: Discrete At: LLQ, Suprapubic Radiates: No Character: Sharp Aggravating Factor(s): Nothing Alleviating Factor(s): Nothing Associated Signs And Symptoms: Negative: Diaphoresis, Fever, Back Pain, Constipation, Blood in Stool, Nausea, Vomiting, Diarrhea - Allergies/Home Medications Allergies/Adverse Reactions: Allergies Allergy/AdvReac Type Severity Reaction Status Date / Time morphine AdvReac Intermediate See Comment Verified 03/18/18 19:37 PMH/Surg Hx/FS Hx/Imm Hx Endocrine History: Dyslipidemia Cardiovascular History: Hypertension GI/ History: Gastroesophageal Reflux, Diverticulitis Psychological History: Depression Cancer History: Prostate Cancer - Surgical History Surgical History: Yes Surgery Procedure, Year, and Place: appendix 2010. prostatectomy 2007. T & A as a child. Back surgery 2017 - Family History Known Family History: Positive: Hypertension, Other - high cholesterol - Social History Alcohol Use: Daily Alcohol Amount: 2 beers daily Substance Use Type: Marijuana Substance Use Comment - Amount & Last Used: occasional Smoking Status (MU): Never Smoked Tobacco - Immunization History Most Recent Influenza Vaccination: 11/2014 Most Recent Tetanus Shot: within 10 yrs Most Recent Pneumonia Vaccination: never Review of Systems All Other Systems Reviewed And Are Negative: Yes Constitutional: Positive: Negative Respiratory: Positive: Negative Cardiovascular: Positive: Negative Gastrointestinal: Positive: Abdominal Pain, Other - PENCIL SHAPED STOOLS Genitourinary: Positive: Frequency. Negative: Dysuria, Urgency Physical Exam Triage Information Reviewed: Yes Appearance: Well-Nourished, Pain Distress - MODERATE Vital Signs: Initial Vital Signs Temp 98.0 F 03/18/18 19:32 Pulse 86 03/18/18 19:32 Resp 20 03/18/18 19:32 BP 163/97 03/18/18 19:32 Pulse Ox 96 03/18/18 19:32 Vital Signs Reviewed: Yes Eyes: Positive: Conjunctiva Clear ENT: Positive: Hearing grossly normal Neck: Positive: Supple Respiratory: Positive: No respiratory distress, No accessory muscle use Cardiovascular: Positive: Pulses Normal Abdomen Description: Positive: Soft, Distended, Other: - EXQUISITE SUPRAPUBIC AND LLQ TENDERNESS. NO REBOUND. Negative: CVA Tenderness (R), CVA Tenderness (L ), Guarding Bowel Sounds: Positive: Present Musculoskeletal: Positive: No Edema Neurological: Positive: Alert Psychological: Positive: Age Appropriate Behavior Skin: Negative: Rashes Abd Pain Male Course/Dx - Course Course Of Treatment: PATIENT WITH ACUTE SUPRAPUBIC/LEFT LOWER QUADRANT ABDOMINAL PAIN THAT IS WORSENING. CONSIDER DIVERTICULITIS PATIENT HAS HAD THIS SEVERAL TIMES IN THE PAST HOWEVER HE IS UNABLE TO SAY THAT THIS FEELS ENTIRELY SIMILAR. WILL SEND THE ED FOR FURTHER EVALUATION AND MANAGEMENT. PT OFFERED TRANSPORT TO THE ED BY AMBULANCE BUT DECLINES. ADVISED THAT BY NOT TRAVELING IN A MONITORED SETTING HE COULD BE RISKING WORSENING OF HIS CONDITION THAT COULD POSE A THREAT TO HIS LIFE, HEALTH AND MEDICAL SAFETY. HE VERBALIZES UNDERSTANDING AND CONTINUES TO DECLINE AMBULANCE TRANSFER. - Differential Dx/Clinical Impression Provider Diagnosis: Abdominal pain, acute, left lower quadrant Discharge - Sign-Out/Discharge Documenting (check all that apply): Patient Departure All imaging exams completed and their final reports reviewed: No Studies - Discharge Plan Condition: Stable Disposition: TRANS [facility] Patient Education Materials: Abdominal Pain (ED) Referrals: Rachel Jc MD [Primary Care Provider] - Additional Instructions: GO DIRECTLY TO THE [facility] ED FROM HERE FOR FURTHER EVALUATION. YOU HAVE DECLINED TRANSFER TO THE ED BY AMBULANCE. BE ADVISED THAT BY NOT TRAVELING IN A MONITORED SETTING YOU COULD BE RISKING WORSENING OF YOUR CONDITION THAT COULD POSE A THREAT TO YOUR LIFE, HEALTH AND MEDICAL SAFETY. - Billing Disposition and Condition Condition: STABLE Disposition: Trans Higher l of Care Fac
== END 2018-03-18 20:02 | disposition short-term general hospital (02) ==
LOC: UCEAST 19:21
DX: R10.32 Left lower quadrant pain (principal); Z88.5 Allergy status to narcotic agent
CPT/HCPCS: 99212; G0463

== ENCOUNTER 2018-03-18 20:20 | Emergency (ER) | payer OTHER ==
[2018-03-18] MEDS ORDERED: Ketorolac INJ* 30 MG/ML 1 ML VIAL IV PUSH ONE (20:47)
[2018-03-18] MEDS ORDERED: NS 0.9% 1000 ML* 1,000 ML IV ONE (20:47)
--- NOTE | 2018-03-18 20:50 | ED ---
GI/ HPI - HPI Summary HPI Summary: 67-year-old male presents with abdominal pain since last night. He states it is located in left lower quadrant. he states he feels similar to diverticulitis in the past. He's had his appendix removed. He admits to nausea but no vomiting. He has had a normal appetite. He states he's had couple pencil like stools. No fever. No flank pain. No testicular pain. No urinary symptoms. States the pain waxes and wanes. states pain is mild at the moment. No chest pain or shortness of breath. He's had his prostate removed. Has a history of depression and high blood pressure. - History of Current Complaint Chief Complaint: EDAbdPain Time Seen by Provider: 03/18/18 20:42 Stated Complaint: ABD PAIN Pain Intensity: 5 - Additional Pertinent History Primary Care Physician: [id number] - Allergy/Home Medications Allergies/Adverse Reactions: Allergies Allergy/AdvReac Type Severity Reaction Status Date / Time Tree Nuts Allergy Itching Verified 03/18/18 20:28 morphine AdvReac Intermediate See Comment Verified 03/18/18 19:37 PMH/Surg Hx/FS Hx/Imm Hx Endocrine/Hematology History: Denies: Hx Diabetes, Hx Thyroid Disease Cardiovascular History: Reports: Hx Hypertension Denies: Hx Congestive Heart Failure, Hx Pacemaker/ICD Respiratory History: Reports: Hx Sleep Apnea Denies: Hx Asthma, Hx Chronic Obstructive Pulmonary Disease (COPD) GI History: Reports: Hx Gastroesophageal Reflux Disease - on med Denies: Hx Ulcer History: Reports: Other Problems/Disorders - prostate removal Denies: Hx Renal Disease Musculoskeletal History: Reports: Hx Arthritis, Hx Bursitis - usually in shoulder- resolved Sensory History: Reports: Hx Contacts or Glasses Denies: Hx Hearing Aid Opthamlomology History: Reports: Hx Contacts or Glasses Neurological History: Denies: Hx Headaches Psychiatric History: Reports: Hx Depression Denies: Hx Panic Disorder - Cancer History Cancer Type, Location and Year: prostate CA Hx Chemotherapy: No - Surgical History Surgery Procedure, Year, and Place: appendix 2010. prostatectomy 2008. T & A as a child. Back surgery 2018 Hx Anesthesia Reactions: No Infectious Disease History: No Infectious Disease History: Denies: Hx Clostridium Difficile, Hx Hepatitis, Hx Human Immunodeficiency Virus (HIV), Hx of Known/Suspected MRSA, Hx Shingles, Hx Tuberculosis, Hx Known/ Suspected VRE, Hx Known/Suspected VRSA, History Other Infectious Disease, Traveled Outside the [place] in Last 30 Days - Family History Known Family History: Positive: Hypertension, Other - high cholesterol - Social History Alcohol Use: Daily Alcohol Amount: 2 beers daily Substance Use Type: Reports: Marijuana Substance Use Comment - Amount & Last Used: occasional Smoking Status (MU): Never Smoked Tobacco Review of Systems Negative: Fever Negative: Chest Pain Negative: Shortness Of Breath Positive: Abdominal Pain, Nausea. Negative: Vomiting, Diarrhea All Other Systems Reviewed And Are Negative: Yes Physical Exam Triage Information Reviewed: Yes Vital Signs On Initial Exam: Initial Vitals Temp Pulse Resp BP Pulse Ox 97.3 F 84 18 145/106 96 03/18/18 20:25 03/18/18 20:25 03/18/18 20:25 03/18/18 20:25 03/18/18 20:25 Vital Signs Reviewed: Yes Appearance: Positive: Well-Appearing Skin: Positive: Warm, Dry Head/Face: Positive: Normal Head/Face Inspection Eyes: Positive: Normal, Conjunctiva Clear ENT: Positive: Pharynx normal - 6 Respiratory/Lung Sounds: Positive: Clear to Auscultation, Breath Sounds Present Cardiovascular: Positive: Normal, RRR Abdomen Description: Positive: Soft, Other: - tenderness LLQ Bowel Sounds: Positive: Present Musculoskeletal: Positive: Normal Neurological: Positive: Normal Psychiatric: Positive: Normal Diagnostics - Vital Signs Vital Signs Temp Pulse Resp BP Pulse Ox 03/18/18 20:25 97.3 F 84 18 145/106 96 - Laboratory Result Diagrams: 03/18/18 19:59 03/18/18 19:59 Lab Statement: Any lab studies that have been ordered have been reviewed, and results considered in the medical decision making process. - CT abd CT Interpretation Completed By: Radiologist Summary of CT Findings: IMPRESSION: 1. Mid sigmoid colon diverticulitis. No perforation or abscess. 2. Simple hepatic and renal cysts. No followup indicated. - EKG No standard instances Cardiac Rate: NL EKG Rhythm: Sinus Rhythm EKG Comparison: No Significant Change Summary of EKG Findings: sinus rhythm Re-Evaluation - Re-Evaluation First Eval Re-Evaluation Time: 22:04 Change: Improved Comment: feeling better after toradol GIGU Course/Dx - Course Course Of Treatment: 67 year old male presents with LLQ today. admits to nausea but no vomiting or diarrhea. had pencil like stool. no fever. has history of divericultitis. on exam has tenderness LLQ. no rebound. wbc 14. crp elevated. electrolytes normal. CT shows diverticulitis. will place on cipro and flagyl. discussed patient will refrain from drinking ETOH until antibiotic completed. told to follow a clear liquid diet from next couple days then progressively had food. patient understand and agrees with plan. - Diagnoses Differential Diagnoses - Male: Diverticulitis, Bowel Obstruction, Urinary Tract Infection Provider Diagnoses: Diverticulitis Discharge - Sign-Out/Discharge Documenting (check all that apply): Patient Departure - Discharge Plan Condition: Good Disposition: HOME Prescriptions: Ciprofloxacin TAB* [Cipro 500 MG TAB*] 500 mg PO BID #19 tab metroNIDAZOLE [Flagyl 500 MG TAB] 500 mg PO TID #29 tab Patient Education Materials: Diverticulitis (ED) Referrals: Rachel Jc MD [Primary Care Provider] - Additional Instructions: Take ciprofloxacin twice a day for 10 days, first dose given in ED Take Flagyl every 8 hours for 10 days, first dose given in ED Follow clear liquid diet until symptoms improve Take tyenlol or ibuprofen every 6 hours as needed for pain follow up with primary Return to ED if unable to keep anything down, develop persistent fever, or any new or worsening symptoms - Billing Disposition and Condition Condition: GOOD Disposition: Home
[2018-03-18 21:02] LABS: ABS Basophils 0.1 10^3/ul (0-0.2); ABS Eosinophils 0.1 10^3/ul (0-0.6); ABS Lymphocytes 1.5 10^3/ul (1.0-4.8); ABS Monocytes 1.2 10^3/ul (0-0.8); ABS Neutrophils 11.4 10^3/ul (1.5-7.7); ABS Nucleated RBC 0 10^3/ul; Hematocrit 45 % (42-52); Hemoglobin 14.9 g/dl (14.0-18.0); Lymphocyte % 10.4 %; Mean Corpuscular HGB Conc 33 g/dl (31-36); Mean Corpuscular Hemoglobin 31 pg (27-31); Mean Corpuscular Volume 93 fL (80-94); Mean Platelet Volume 8.4 fL (7.4-10.4); Nucleated Red Blood Cells % 0; Platelet Count 330 10^3/ul (150-450); Red Cell Distribution Width 14 % (10.5-15); White Blood Count 14.4 10^3/ul (3.5-10.8)
[2018-03-18 21:26] LABS: ALT 11 U/L (7-52); AST 12 U/L (13-39); Albumin 4.5 g/dL (3.2-5.2); Albumin/Globulin Ratio 1.6 (1-3); Alkaline Phosphatase 64 U/L (34-104); Anion Gap 8 mmol/L (2-11); BUN/Creatinine Ratio 12.9 (8-20); Blood Urea Nitrogen 13 mg/dL (6-24); C Reactive Protein 8.14 mg/L (<8.01); CO2 Carbon Dioxide 23 mmol/L (22-32); Calcium 9.4 mg/dL (8.6-10.3); Chloride 105 mmol/L (101-111); EGFR Non-African American 73.9 (>60); Globulin 2.9 g/dL (2-4); Glucose 101 mg/dL (70-100); Potassium 3.8 mmol/L (3.5-5.0); Sodium 136 mmol/L (135-145); Total Protein 7.4 g/dL (6.4-8.9)
[2018-03-18] MEDS ORDERED: Iohexol 300* (CONTRAST) 10 ML SDV IV ONE (21:40)
[2018-03-18] MEDS ORDERED: Ciprofloxacin TAB* 500 MG PO ONE (23:57)
[2018-03-18] MEDS ORDERED: metroNIDAZOLE TAB* 250 MG PO ONE (23:57)
[2018-03-19] MEDS ORDERED: Ketorolac INJ* 30 MG/ML 1 ML VIAL IV PUSH ONE (00:16)
[2018-03-19 00:26] VITALS: BP 121/75
== END 2018-03-19 00:26 | disposition home or self-care (01) ==
LOC: ED 20:20
DX: K57.92 Diverticulitis of intestine, part unspecified, without perforation or abscess without bleeding (principal); R10.32 Left lower quadrant pain; R11.0 Nausea
CPT/HCPCS: 36415; 74177; 80053; 83605; 83690; 85025; 86140; 93005; 96361; 96374; 99283; A9270-GY; J1885; Q9967